=== PATIENT | male | born 1980 | race Caucasian/White ===

== ENCOUNTER 2017-06-27 08:27 | Emergency (ER) | payer SELFPAY ==
[2017-06-27] MEDS ORDERED: Ondansetron INJ* 2 MG/ML VIAL IV ONE (08:52)
[2017-06-27] MEDS ORDERED: Morphine INJ* 4 MG/ML 1 ML CARPUJECT IV ONE (08:55)
[2017-06-27] MEDS: NS 0.9% 1000 ML* 2,000 ML IV ONE ×2 (09:05→09:15)
[2017-06-27 09:11] LABS: ABS Basophils 0 10^3/ul (0-0.2); ABS Eosinophils 0.2 10^3/ul (0-0.6); ABS Lymphocytes 1.3 10^3/ul (1.0-4.8); ABS Monocytes 0.7 10^3/ul (0-0.8); ABS Nucleated RBC 0 10^3/ul; Eosinophil % 1.7 % (0-6); Hematocrit 46 % (42-52); Hemoglobin 15.9 g/dl (14.0-18.0); Mean Corpuscular HGB Conc 35 g/dl (31-36); Mean Corpuscular Hemoglobin 28 pg (27-31); Mean Corpuscular Volume 81 fL (80-94); Mean Platelet Volume 8 um3 (7.4-10.4); Nucleated Red Blood Cells % 0; Platelet Count 269 10^3/ul (150-450); Red Blood Count 5.65 10^6/ul (4.0-5.4); Red Cell Distribution Width 13 % (10.5-15); White Blood Count 13.3 10^3/ul (3.5-10.8)
[2017-06-27 09:37] LABS: EGFR Non-African American 105.4 (>60)
[2017-06-27] MEDS ORDERED: Metoclopramide IV* 5 MG/ML 2 ML VIAL IV SLOW PU ONE (10:36)
[2017-06-27] MEDS ORDERED: Iohexol 300* (CONTRAST) 10 ML SDV IV ONE (10:59)
--- NOTE | 2017-06-27 11:46 | RAD ---
INDICATION: Right lower quadrant pain COMPARISON: CT chest/abdomen/pelvis September 03, 2013 TECHNIQUE: Axial source images were obtained from the hemidiaphragms to the symphysis pubis following administration of oral and intravenous contrast. 145 mL Omnipaque 300 was utilized. Coronal and sagittal reconstructed images were acquired. Lung bases: The lung bases are clear. Liver: The liver is enlarged with findings of hepatic steatosis. There are no masses. There is no ductal dilatation. Gallbladder: There are no calcified gallstones. There is no evidence of wall thickening or pericholecystic fluid. Spleen: The spleen is normal in size. There are no masses. Pancreas: There is no focal pancreatic mass or ductal dilatation. Adrenal glands: There is no evidence of adrenal mass. Kidneys: The kidneys are normal in size and position. There are prompt nephrograms and there is prompt excretion bilaterally. There are no renal parenchymal masses. There is no evidence of nephrolithiasis. Adenopathy: There is no evidence of adenopathy by size criteria. Fluid collections: There are no free or localized fluid collections. Vessels:There are no significant atherosclerotic changes involving the aorta. There is no focal aneurysm. The iliac vessels are normal in caliber. The IVC appears normal. GI tract: .There are no acute CT bowel findings. There is no obstruction. The stomach and small bowel appear normal. The lower GI tract is remarkable for scattered diverticula of the sigmoid and descending colon. There is mild bowel wall thickening which may reflect chronic change. There is no perienteric stranding. The terminal ileum, ileocecal valve, and appendix are normal. Pelvic organs: The prostate and seminal vesicles appear normal Bladder: There are no bladder masses. Abdominal and pelvic soft tissues: The extraperitoneal abdominal and pelvic soft tissues appear normal.. Osseous structures: There are no acute osseous findings. There is mild lumbar spine straightening, unchanged Other: None IMPRESSION: 1. Normal appendix. 2. No evidence of calcified cholelithiasis. 3. Scattered diverticula with presumed chronic change. No CT evidence specific for acute diverticulitis
[2017-06-27] MEDS ORDERED: Haloperidol INJ IV/IM* 5 MG/ML AMP IV SLOW PU ONE (12:10)
[2017-06-27 12:17] LABS: Urine Appearance Clear; Urine Blood 1+ (Negative); Urine Color Straw; Urine Ketones Negative (Negative); Urine Protein Negative (Negative); Urine Specific Gravity 1.038 (1.010-1.030); Urine Urobilinogen Negative (Negative)
[2017-06-27] MEDS ORDERED: Al Hydrox/Mg Hydrox/Simet LIQ* 30 ML UDC PO ONE (12:42)
[2017-06-27] MEDS ORDERED: HYDROcodone/ACETAMIN 5-325 MG* 1 TAB PO ONE (12:42)
[2017-06-27] MEDS ORDERED: Lidocaine 2% VISCOUS* 15 ML UDC PO ONE (12:42)
[2017-06-27] MEDS ORDERED: LORazepam INJ* 2 MG/ML 1 ML VIAL IV PUSH ONE (12:42)
[2017-06-27 14:55] VITALS: BP 155/80
--- NOTE | 2017-06-28 16:14 | ED ---
Virginia Cisneros Gabriel, scribed for Valdo Apple MD on 06/27/17 at 0908 . GI/ HPI - HPI Summary HPI Summary: This patient is a 36 year old M presenting to [facility] accompanied by his with a chief complaint of n/v/d since midnight last night. The patient rates the pain 8/10 in severity. Patient reports fever, rash on his face, swallow face , unable to shut his eyes, myalgia, sore throat, some blood in vomit, and GERARD. Patient denies dysuria, hematuria, and testicular pain. Patient has not had a vomiting episode in an hour and states his diarrhea is green. He has been having ABD pain for a week and does not believe it is a pulled muscle. The patient has sick children at home, drinks 4-5 red bulls a day, and still has his appendix. - History of Current Complaint Chief Complaint: EDNauseaVomitDiarrh Time Seen by Provider: 06/27/17 08:52 Stated Complaint: VOMITING Hx Obtained From: Patient Onset/Duration: Started Hours Ago - 9, Still Present Timing: Constant Severity: Moderate Current Severity: Moderate Pain Intensity: 8 Location of Pain: Suprapubic - Additional Pertinent History Primary Care Physician: [id number] - Allergy/Home Medications Allergies/Adverse Reactions: Allergies Allergy/AdvReac Type Severity Reaction Status Date / Time No Known Allergies Allergy Verified 06/27/17 08:33 PMH/Surg Hx/FS Hx/Imm Hx Endocrine/Hematology History: Denies: Hx Diabetes, Hx Thyroid Disease Cardiovascular History: Reports: Hx Hypertension Denies: Hx Congestive Heart Failure Respiratory History: Denies: Hx Asthma, Hx Chronic Obstructive Pulmonary Disease (COPD) GI History: Denies: Hx Ulcer History: Denies: Hx Renal Disease Musculoskeletal History: Reports: Hx Back Problems - sciatica, DJD Denies: Hx Scoliosis Neurological History: Reports: Other Neuro Impairments/Disorders - BILATERAL LOWER EXTREMITY WEAKNESS,NUMBNESS Denies: Hx Headaches Psychiatric History: Reports: Hx Anxiety, Hx of Violent Episodes Against Others Denies: Hx Eating Disorder Infectious Disease History: No Infectious Disease History: Denies: Hx Clostridium Difficile, Hx Hepatitis, Hx Human Immunodeficiency Virus (HIV), Hx of Known/Suspected MRSA, Hx Shingles, Hx Tuberculosis, Traveled Outside the [place] in Last 30 Days - Family History Known Family History: Positive: Cardiac Disease, Hypertension - Social History Occupation: Employed Full-time Lives: With Family Alcohol Use: Occasionally Alcohol Amount: Weekly mostly on the weekends Substance Use Type: Reports: Cocaine, Marijuana, Heroin Substance Use Comment - Amount & Last Used: states Hx opiod abuse 2008 Smoking Status (MU): Former Smoker Type: Cigarettes Review of Systems Positive: Fever. Negative: Chills Negative: Erythema Positive: Sore Throat Negative: Chest Pain Negative: Shortness Of Breath Positive: Abdominal Pain, Vomiting, Diarrhea, Nausea, Other - small amount of blood in his vomit Genitourinary: Negative - testicular pain Negative: dysuria, hematuria Positive: Myalgia. Negative: Edema Positive: Rash - on face , Other - facial swelling making him unable to shut his eyes Neurological: Negative - dizziness Positive: Headache All Other Systems Reviewed And Are Negative: Yes Physical Exam - Summary Physical Exam Summary: Constitutional: Well-developed, Well-nourished, Alert. (-) Distressed Skin: Warm, Dry, petechiae on his face HENT: Normocephalic; Atraumatic Eyes: Conjunctiva normal Neck: Musculoskeletal ROM normal neck. (-) JVD, (-) Stridor, (-) Tracheal deviation Cardio: Rhythm regular, rate normal, Heart sounds normal; Intact distal pulses; The pedal pulses are 2+ and symmetric. Radial pulses are 2+ and symmetric. (-) Murmur Pulmonary/Chest wall: Effort normal. (-) Respiratory distress, (-) Wheezes, (-) Rales Abd: Soft, (+) Tenderness, (-) Distension, (-) Guarding, (-) Rebound, RLQ tenderness Musculoskeletal: (-) Edema Lymph: (-) Cervical adenopathy Neuro: Alert, Oriented x3 Psych: Mood and affect Normal Triage Information Reviewed: Yes Vital Signs On Initial Exam: Initial Vitals Temp Pulse Resp BP Pulse Ox 99.4 F 85 16 175/94 98 06/27/17 08:30 06/27/17 08:30 06/27/17 08:30 06/27/17 08:30 06/27/17 08:30 Diagnostics - Vital Signs Vital Signs Temp Pulse Resp BP Pulse Ox 06/27/17 08:30 99.4 F 85 16 175/94 98 - Laboratory Lab Results: Lab Results 06/27/17 06/27/17 06/27/17 Range/Units 09:02 09:02 09:02 WBC 13.3 H (3.5-10.8) 10^3/ul RBC 5.65 H (4.0-5.4) 10^6/ul Hgb 15.9 (14.0-18.0) g/dl Hct 46 (42-52) % MCV 81 (80-94) fL MCH 28 (27-31) pg MCHC 35 (31-36) g/dl RDW 13 (10.5-15) % Plt Count 269 (150-450) 10^3/ul MPV 8 (7.4-10.4) um3 Neut % (Auto) 82.7 (38-83) % Lymph % (Auto) 10.0 L (25-47) % [place] % (Auto) 5.3 (1-9) % Eos % (Auto) 1.7 (0-6) % Baso % (Auto) 0.3 (0-2) % Absolute Neuts (auto) 11.0 H (1.5-7.7) 10^3/ul Absolute Lymphs (auto) 1.3 (1.0-4.8) 10^3/ul Absolute Monos (auto) 0.7 (0-0.8) 10^3/ul Absolute Eos (auto) 0.2 (0-0.6) 10^3/ul Absolute Basos (auto) 0 (0-0.2) 10^3/ul Absolute Nucleated RBC 0 10^3/ul Nucleated RBC % 0 Sodium 136 (133-145) mmol/L Potassium 4.2 (3.5-5.0) mmol/L Chloride 102 (101-111) mmol/L Carbon Dioxide 25 (22-32) mmol/L Anion Gap 9 (2-11) mmol/L BUN 10 (6-24) mg/dL Creatinine 0.83 (0.67-1.17) mg/dL Est GFR ( Amer) 135.6 (>60) Est GFR (Non-Af Amer) 105.4 (>60) BUN/Creatinine Ratio 12.0 (8-20) Glucose 94 (70-100) mg/dL Lactic Acid 1.7 (0.5-2.0) mmol/L Calcium 9.8 (8.6-10.3) mg/dL Total Bilirubin 0.70 (0.2-1.0) mg/dL AST 40 H (13-39) U/L ALT 63 H (7-52) U/L Alkaline Phosphatase 48 (34-104) U/L C-Reactive Protein 2.11 (< 5.00) mg/L Total Protein 7.7 (6.4-8.9) g/dL Albumin 4.5 (3.2-5.2) g/dL Globulin 3.2 (2-4) g/dL Albumin/Globulin Ratio 1.4 (1-3) Lipase 19 (11.0-82.0) U/L Urine Color Urine Appearance Urine pH (5-9) Ur Specific [place] (1.010-1.030) Urine Protein (Negative) Urine Ketones (Negative) Urine Blood (Negative) Urine Nitrate (Negative) Urine Bilirubin (Negative) Urine Urobilinogen (Negative) Ur Leukocyte Esterase (Negative) Urine WBC (Auto) (Absent) Urine RBC (Auto) (Absent) Urine Bacteria (Absent) Urine Glucose (Negative) Influenza A (Rapid) (Negative) Influenza B (Rapid) (Negative) 06/27/17 06/27/17 Range/Units 09:27 11:40 WBC (3.5-10.8) 10^3/ul RBC (4.0-5.4) 10^6/ul Hgb (14.0-18.0) g/dl Hct (42-52) % MCV (80-94) fL MCH (27-31) pg MCHC (31-36) g/dl RDW (10.5-15) % Plt Count (150-450) 10^3/ul MPV (7.4-10.4) um3 Neut % (Auto) (38-83) % Lymph % (Auto) (25-47) % [place] % (Auto) (1-9) % Eos % (Auto) (0-6) % Baso % (Auto) (0-2) % Absolute Neuts (auto) (1.5-7.7) 10^3/ul Absolute Lymphs (auto) (1.0-4.8) 10^3/ul Absolute Monos (auto) (0-0.8) 10^3/ul Absolute Eos (auto) (0-0.6) 10^3/ul Absolute Basos (auto) (0-0.2) 10^3/ul Absolute Nucleated RBC 10^3/ul Nucleated RBC % Sodium (133-145) mmol/L Potassium (3.5-5.0) mmol/L Chloride (101-111) mmol/L Carbon Dioxide (22-32) mmol/L Anion Gap (2-11) mmol/L BUN (6-24) mg/dL Creatinine (0.67-1.17) mg/dL Est GFR ( Amer) (>60) Est GFR (Non-Af Amer) (>60) BUN/Creatinine Ratio (8-20) Glucose (70-100) mg/dL Lactic Acid (0.5-2.0) mmol/L Calcium (8.6-10.3) mg/dL Total Bilirubin (0.2-1.0) mg/dL AST (13-39) U/L ALT (7-52) U/L Alkaline Phosphatase (34-104) U/L C-Reactive Protein (< 5.00) mg/L Total Protein (6.4-8.9) g/dL Albumin (3.2-5.2) g/dL Globulin (2-4) g/dL Albumin/Globulin Ratio (1-3) Lipase (11.0-82.0) U/L Urine Color Straw Urine Appearance Clear Urine pH 7.0 (5-9) Ur Specific [place] 1.038 H (1.010-1.030) Urine Protein Negative (Negative) Urine Ketones Negative (Negative) Urine Blood 1+ H (Negative) Urine Nitrate Negative (Negative) Urine Bilirubin Negative (Negative) Urine Urobilinogen Negative (Negative) Ur Leukocyte Esterase Negative (Negative) Urine WBC (Auto) Absent (Absent) Urine RBC (Auto) Trace(0-2/hpf) (Absent) Urine Bacteria Absent (Absent) Urine Glucose Negative (Negative) Influenza A (Rapid) Negative (Negative) Influenza B (Rapid) Negative (Negative) Result Diagrams: 06/27/17 09:02 06/27/17 09:02 Lab Statement: Any lab studies that have been ordered have been reviewed, and results considered in the medical decision making process. - CT CT ABD/Pelvis CT Interpretation Completed By: Radiologist - 1. Normal appendix. 2. No evidence of calcified cholelithiasis. 3. Scattered diverticula with presumed chronic change. No CT evidence specific for acute diverticulitis ED physician has reviewed this radiology report. Re-Evaluation - Re-Evaluation First Eval Re-Evaluation Time: 12:00 Change: Unchanged Comment: The patient is still nauseous still has epigastric pain. Second Eval Re-Evaluation Time: 13:28 Change: Improved Comment: Patient has non tender abd and is tolerating PO fluids. Pain is 2/10. GIGU Course/Dx - Course Assessment/Plan: This patient is a 36 year old M presenting to [facility] accompanied by his with a chief complaint of n/v/d since midnight last night. The patient rates the pain 8/10 in severity. Patient reports fever, rash on his face, swollen face, unable to shut his eyes, myalgia, sore throat, some blood in vomit, and GERARD. Patient denies dysuria, hematuria, and testicular pain. Patient has not had a vomiting episode in an hour and states his diarrhea is green. He has been having ABD pain for a week and does not believe it is a pulled muscle. The patient has sick children at home, drinks 4-5 red bulls a day , and still has his appendix. CT ABD/Pelvis reveals, per radiologist, 1. Normal appendix. 2. No evidence of calcified cholelithiasis. 3. Scattered diverticula with presumed chronic change. No CT evidence specific for acute. diverticulitis. Test results with no significant abnormalities, UA and bloodwork obtained. In the ED course the patient was given Maalox, Ativan, Reglan, morphine, and IV fluids. Patient will be discharged with prescription for Reglan, Zofran, and Protonix and follow up from [facility] [place] referral. The patient is agreeable with this plan. - Diagnoses Provider Diagnoses: Gastroenteritis Discharge - Discharge Plan Condition: Stable Disposition: HOME Prescriptions: Metoclopramide TAB* [Reglan TAB*] 10 mg PO Q8H PRN #10 tab PRN Reason: Nausea/Vomiting Ondansetron ODT TAB* [Zofran 4 MG Odt TAB*] 4 mg PO Q8H PRN #10 tab.odt PRN Reason: Nausea/Vomiting Pantoprazole TAB (NF) [Protonix TAB (NF)] 40 mg PO DAILY #30 tab Patient Education Materials: Metoclopramide (By mouth), Ondansetron (By mouth) , Pantoprazole (By mouth), Gastroenteritis (ED) Referrals: No Primary Care Phys,NOPCP [Primary Care Provider] - [facility]YSICIAN REFERRAL [Outside] Additional Instructions: Take Maalox as needed for pain. RETURN TO EMERGENCY DEPARTMENT FOR ANY NEW OR WORSENING SYMPTOMS The documentation as recorded by the Virignia hyatt Gabriel accurately reflects the service I personally performed and the decisions made by me, Valdo Apple MD.
== END 2017-06-27 14:50 | disposition home or self-care (01) ==
LOC: ED 08:27
DX: K52.9 Noninfective gastroenteritis and colitis, unspecified (principal); R50.9 Fever, unspecified; J02.9 Acute pharyngitis, unspecified; R10.9 Unspecified abdominal pain; R11.2 Nausea with vomiting, unspecified; R19.7 Diarrhea, unspecified; R21 Rash and other nonspecific skin eruption; R51 Headache; Z87.891 Personal history of nicotine dependence
CPT/HCPCS: 36415; 74177; 80053; 81003; 81015; 83605; 83690; 85025; 86140; 87502; 96374; 96375; 99284; A9270-GY; J1630; J2060; J2270; J2405; J2765; Q9967

== ENCOUNTER 2018-02-21 18:52 | Emergency (ER) | payer SELFPAY ==
[2018-02-21] MEDS ORDERED: Lidocaine 2% EPI 1:200000 MPF*10-20 ML VIAL ONE (20:12)
--- NOTE | 2018-02-21 20:21 | ED ---
Laceration/Wound HPI - HPI Summary HPI Summary: Brooke suffered a lacedration to his left thumb on a knife while working on his car at 1700 today. - History of Current Complaint Stated Complaint: LEFT THUMB INJURY Time Seen by Provider: 02/21/18 20:20 Pain Intensity: 10 - Additional Pertinent History Primary Care Physician: [id number] - Allergy/Home Medications Allergies/Adverse Reactions: Allergies Allergy/AdvReac Type Severity Reaction Status Date / Time No Known Allergies Allergy Verified 02/21/18 20:38 PMH/Surg Hx/FS Hx/Imm Hx Endocrine/Hematology History: Denies: Hx Diabetes, Hx Thyroid Disease Cardiovascular History: Reports: Hx Hypertension Denies: Hx Congestive Heart Failure Respiratory History: Denies: Hx Asthma, Hx Chronic Obstructive Pulmonary Disease (COPD) GI History: Denies: Hx Ulcer History: Denies: Hx Renal Disease Musculoskeletal History: Reports: Hx Back Problems - sciatica, DJD Denies: Hx Scoliosis Neurological History: Reports: Other Neuro Impairments/Disorders - BILATERAL LOWER EXTREMITY WEAKNESS,NUMBNESS Denies: Hx Headaches Psychiatric History: Reports: Hx Anxiety, Hx of Violent Episodes Against Others Denies: Hx Eating Disorder - Surgical History Surgery Procedure, Year, and Place: thumb Infectious Disease History: No Infectious Disease History: Denies: Hx Clostridium Difficile, Hx Hepatitis, Hx Human Immunodeficiency Virus (HIV), Hx of Known/Suspected MRSA, Hx Shingles, Hx Tuberculosis, Traveled Outside the in Last 30 Days - Family History Known Family History: Positive: Cardiac Disease, Hypertension - Social History Alcohol Use: Occasionally Alcohol Amount: Weekly mostly on the weekends Substance Use Type: Reports: Cocaine, Marijuana, Heroin Substance Use Comment - Amount & Last Used: states Hx opiod abuse 2009 Smoking Status (MU): Former Smoker Type: Cigarettes Review of Systems Constitutional: Negative Negative: Rash All Other Systems Reviewed And Are Negative: No Physical Exam Vital Signs On Initial Exam: Initial Vitals Temp Pulse Resp BP Pulse Ox 35.9 C 110 20 164/104 97 02/21/18 18:55 02/21/18 18:55 02/21/18 18:55 02/21/18 18:55 02/21/18 18:55 Skin: Positive: Warm, Dry Head/Face: Positive: Normal Head/Face Inspection Eyes: Positive: Normal ENT: Positive: Normal ENT inspection Respiratory/Lung Sounds: Positive: Breath Sounds Present - There is a 3 cm linear laceration to the distal left thumb Procedures - Procedure Summary Procedure Summary: The patient was given a digital block with 2% lidocaine with epinephrine by me. Subsequent repair of the laceration was performed by the physician children's nursery assistant. - Laceration/Wound Repair 1 Suture Type: Nylon Diagnostics - Vital Signs Vital Signs Temp Pulse Resp BP Pulse Ox 02/21/18 18:55 35.9 C 110 20 164/104 97 - Laboratory Lab Statement: Any lab studies that have been ordered have been reviewed, and results considered in the medical decision making process. Laceration Repair Course/Dx - Clinical Impression Provider Diagnoses: Finger laceration Discharge - Sign-Out/Discharge Documenting (check all that apply): Patient Departure - Discharge Plan Condition: Stable Disposition: HOME Prescriptions: Cephalexin CAP* [Keflex CAP*] 500 mg PO BID #14 cap Hydrocodone/Acetaminophen [[place] 5-325 mg] 1 tab PO BID PRN #6 tab MDD 2 PRN Reason: Pain Referrals: No Primary Care Phys,NOPCP [Primary Care Provider] - Additional Instructions: 1) Please keep the area bandaged, clean, dry, and intact for the next 24- 48hours. 2) If you develop a fever, colored or thick discharge, increased pain or swelling - please call your PCP or go to the ED. 3) Please return in 10 days to have your SIX sutures removed. - Billing Disposition and Condition Condition: STABLE Disposition: Home - Attestation Statements Document Initiated by Scribe: No
[2018-02-21] MEDS ORDERED: Ondansetron ODT TAB* 4 MG PO ONE (21:24)
--- NOTE | 2018-02-21 21:32 | ED ---
Progress - Progress Note Progress Note: Pt evaluated by Dr. Sloan. Procedure and discharge performed by myself. Course/Dx - Course Course Of Treatment: Pt tolerated procedure well, but did become nauseous during the suturing process - Zofran 4mg was given in the clinical course. He works daily with his hands and is very concerned about pain in the coming days and is asking for something stronger than ibuprofen to have if his pain becomes severe. iSTOP Reference #: [id number] and clear. Will rx for a short supply of [place] and cover him with Keflex for infection as the wound was quite dirty upon presentation. Pt agreeable with plan. - Diagnoses Provider Diagnoses: Finger laceration Discharge - Sign-Out/Discharge Documenting (check all that apply): Patient Departure - Discharge Plan Condition: Stable Disposition: HOME Prescriptions: Cephalexin CAP* [Keflex CAP*] 500 mg PO BID #14 cap Hydrocodone/Acetaminophen [[place] 5-325 mg] 1 tab PO BID PRN #6 tab MDD 2 PRN Reason: Pain Referrals: No Primary Care Phys,NOPCP [Primary Care Provider] - Additional Instructions: 1) Please keep the area bandaged, clean, dry, and intact for the next 24- 48hours. 2) If you develop a fever, colored or thick discharge, increased pain or swelling - please call your PCP or go to the ED. 3) Please return in 10 days to have your SIX sutures removed. - Billing Disposition and Condition Condition: STABLE Disposition: Home Laceration Repair - Laceration Repair 1 Procedure Summary: Thumb was cleansed with NS and alcohol pad. A digital block was performed with 2 % lidocaine and good anesthetization was achieved. SIX 5-0 nylon interrupted sutures placed with good approximation of wound edges. The wound was bandaged with tubegauze. Laceration Size After Repair: Length (cm) - 2.0, Width (mm) - 4 Modified For Repair: No Type Injection: Local Anesthesia Used: 2.0% Lido Cleansing Completed Via Routine Prep: Yes Closure Material: Sutures - SIX 5-0 Closure Method: Single Layer Suture Of: Skin Suture Type: Nylon
[2018-02-21 21:39] VITALS: BP 141/90
== END 2018-02-21 21:35 | disposition home or self-care (01) ==
LOC: ED 18:52
DX: S61.012A Laceration without foreign body of left thumb without damage to nail, initial encounter (principal); W26.0XXA Contact with knife, initial encounter; Y92.9 Unspecified place or not applicable; Z87.891 Personal history of nicotine dependence
CPT/HCPCS: 12002; 99282; A9270-GY

== ENCOUNTER 2018-09-07 09:23 | Emergency (ER) | payer SELFPAY ==
[2018-09-07] MEDS ORDERED: Morphine 10 MG/ML VIAL (1 ml) IV ONE (09:36)
[2018-09-07] MEDS ORDERED: Metoclopramide IV* 5 MG/ML 2 ML VIAL IV ONE (09:36)
[2018-09-07] MEDS ORDERED: NS 0.9% 1000 ML** 2,000 ML IV ONE (09:36)
--- NOTE | 2018-09-07 09:40 | ED ---
Abdominal Pain/Male - HPI Summary HPI Summary: This patient is a 37 year old M brought in by ambulance to ED with a chief complaint of N/V and diffuse abdominal pain since earlier this morning. Prior treatment includes 4mg IVP Zofran given by EMS. The patient rates the pain 10/ 10 in severity. Symptoms aggravated by nothing. Symptoms alleviated by nothing. Patient reports anxiety, chills, cramping in his fingers and toes, and hematemesis. He reports that he still has his appendix. He smokes marijuana occasionally. - History of Current Complaint Stated Complaint: GENERAL ILLNESS PER EMS Time Seen by Provider: 09/07/18 09:28 Hx Obtained From: Patient Onset/Duration: Sudden Onset, Lasting Hours, Still Present Timing: Constant, Lasting Hours Pain Scale Used: 0-10 Numeric Location: Diffuse Aggravating Factor(s): Nothing Alleviating Factor(s): Nothing Associated Signs And Symptoms: Positive: Nausea, Vomiting, Other - anxiety, chills, cramping in his fingers and toes, and hematemesis - Allergies/Home Medications Allergies/Adverse Reactions: Allergies Allergy/AdvReac Type Severity Reaction Status Date / Time No Known Allergies Allergy Verified 02/21/18 20:38 PMH/Surg Hx/FS Hx/Imm Hx Endocrine/Hematology History: Denies: Hx Diabetes, Hx Thyroid Disease Cardiovascular History: Reports: Hx Hypertension Denies: Hx Congestive Heart Failure Respiratory History: Denies: Hx Asthma, Hx Chronic Obstructive Pulmonary Disease (COPD) GI History: Denies: Hx Ulcer History: Denies: Hx Renal Disease Musculoskeletal History: Reports: Hx Back Problems - sciatica, DJD Denies: Hx Scoliosis Neurological History: Reports: Other Neuro Impairments/Disorders - BILATERAL LOWER EXTREMITY WEAKNESS,NUMBNESS Denies: Hx Headaches Psychiatric History: Reports: Hx Anxiety, Hx of Violent Episodes Against Others Denies: Hx Eating Disorder - Surgical History Surgery Procedure, Year, and Place: thumb - Immunization History Date of Tetanus Vaccine: unknown Infectious Disease History: Denies: Hx Clostridium Difficile, Hx Hepatitis, Hx Human Immunodeficiency Virus (HIV), Hx of Known/Suspected MRSA, Hx Shingles, Hx Tuberculosis - Family History Known Family History: Positive: Cardiac Disease, Hypertension - Social History Alcohol Use: Occasionally Alcohol Amount: Weekly mostly on the weekends Substance Use Type: Reports: Cocaine, Marijuana, Heroin Substance Use Comment - Amount & Last Used: states Hx opiod abuse 2009 Smoking Status (MU): Former Smoker Type: Cigarettes Review of Systems Positive: Chills Positive: Abdominal Pain - diffuse, Vomiting, Nausea, Other - hematemesis Positive: Other - cramping in his fingers and toes Positive: Anxious All Other Systems Reviewed And Are Negative: Yes Physical Exam - Summary Physical Exam Summary: Appearance: Well appearing, anxious Skin: warm, dry, reflects adequate perfusion Head/face: normal Eyes: EOMI, DEMETRIO ENT: normal Neck: supple, non-tender Respiratory: CTA, breath sounds present Cardiovascular: RRR, pulses symmetrical Abdomen: diffuse abdominal tenderness, soft Musculoskeletal: normal, strength/ROM intact Neuro: normal, sensory motor intact, A&Ox3 Triage Information Reviewed: Yes Vital Signs Reviewed: Yes Diagnostics - Laboratory Result Diagrams: 09/07/18 09:56 09/07/18 09:56 Lab Statement: Any lab studies that have been ordered have been reviewed, and results considered in the medical decision making process. - CT CT abd/pel CT Interpretation Completed By: Radiologist Summary of CT Findings: Mild colonic diverticulosis without findings of acute diverticulitis. Normal appendix documented. Negative for obstructive uropathy. No acute abdominal pelvic pathologic process evident. Dr. Herndon has reviewed this radiology report. - EKG 0946 Cardiac Rate: NL - 83 BPM EKG Rhythm: Sinus Rhythm Summary of EKG Findings: no acute changes Re-Evaluation - Re-Evaluation First Eval Re-Evaluation Time: 12:50 Comment: Discussed results and plan for discharge with the patient. Patient understands and agrees with this plan. Abdominal Pain Male Course/Dx - Course Assessment/Plan: This patient is a 37 year old M presenting to ED with a chief complaint of N/V and diffuse abdominal pain since earlier this morning. Blood work/UA obtained. In the ED course, the patient was given fluids, Reglan, Haldol , Benadryl, Ativan, Zofran, and Morphine. EKG reveals NSR at 83 BPM and no acute changes. CT abd/pel mild colonic diverticulosis without findings of acute diverticulitis. Normal appendix documented. Negative for obstructive uropathy. No acute abdominal pelvic pathologic process evident. This patient will be discharged with dx of gastroenteritis. Patient understands and agrees with this plan. - Diagnoses Differential Diagnosis/HQI/PQRI: Other - gastroenteritis Provider Diagnoses: Gastroenteritis Discharge - Sign-Out/Discharge Documenting (check all that apply): Patient Departure - discharge Patient Received Moderate/Deep Sedation with Procedure: No - Discharge Plan Condition: Stable Disposition: HOME Patient Education Materials: Gastroenteritis (ED) Referrals: [facility] [Outside] - 3 Days Additional Instructions: RETURN TO THE EMERGENCY DEPARTMENT FOR CHANGING OR WORSENING SYMPTOMS. - Attestation Statements Document Initiated by Scribe: Yes Documenting Scribe: Bandar Coffey Provider For Whom Scribe is Documenting (Include Credential): Mathew Herndon MD Scribe Attestation: Bandar Cisneros, scribed for Mathew Herndon MD on 09/07/18 at 1252.
[2018-09-07 10:04] LABS: ABS Basophils 0 10^3/ul (0-0.2); ABS Eosinophils 0.1 10^3/ul (0-0.6); ABS Lymphocytes 0.6 10^3/ul (1.0-4.8); ABS Monocytes 0.5 10^3/ul (0-0.8); ABS Neutrophils 15.7 10^3/ul (1.5-7.7); ABS Nucleated RBC 0 10^3/ul; Eosinophil % 0.4 %; Hematocrit 46 % (36-46); Hemoglobin 15.8 g/dL (14.0-18.0); Lymphocyte % 3.7 %; Mean Corpuscular HGB Conc 34 g/dL (31-36); Mean Corpuscular Hemoglobin 28 pg (27-31); Mean Corpuscular Volume 82 fL (80-94); Mean Platelet Volume 8.5 fL (7.4-10.4); Nucleated Red Blood Cells % 0; Platelet Count 295 10^3/uL (150-450); Red Blood Count 5.67 10^6 /uL (4.18-5.48); Red Cell Distribution Width 14 % (10.5-15); White Blood Count 16.9 10^3/uL (3.5-10.8)
[2018-09-07 10:11] LABS: INR 0.98 (0.77-1.02)
[2018-09-07] MEDS ORDERED: Ondansetron INJ* 2 MG/ML VIAL IV ONE (10:19)
[2018-09-07 10:20] LABS: Albumin 4.7 g/dL (3.2-5.2); Albumin/Globulin Ratio 1.6 (1-3); BUN/Creatinine Ratio 16.7 (8-20); Calcium 9.8 mg/dL (8.6-10.3); EGFR Non-African American 82.6 (>60); Potassium 4.1 mmol/L (3.5-5.0); Total Bilirubin 0.9 mg/dL (0.2-1.0); Total Protein 7.7 g/dL (6.4-8.9)
[2018-09-07] MEDS ORDERED: Iohexol 300* (CONTRAST) 10 ML SDV IV ONE (10:31)
[2018-09-07] MEDS ORDERED: LORazepam INJ* 2 MG/ML 1 ML VIAL ONE (10:39)
[2018-09-07] MEDS ORDERED: Haloperidol INJ IV/IM* 5 MG/ML AMP IM ONE (10:48)
[2018-09-07] MEDS ORDERED: LORazepam INJ* 2 MG/ML 1 ML VIAL IV PUSH ONE (10:48)
[2018-09-07] MEDS ORDERED: diPHENhydraMINE IV* 50 MG/ML 1 ml VIAL (BENADRYL) IV ONE (10:49)
[2018-09-07 12:45] LABS: Urine Appearance Clear; Urine Bilirubin Negative (Negative); Urine Blood Negative (Negative); Urine Color Yellow; Urine Glucose Negative (Negative); Urine Ketones 1+ (Negative); Urine Nitrite Negative (Negative); Urine Protein Negative (Negative); Urine Specific Gravity 1.056 (1.010-1.030); Urine Urobilinogen Negative (Negative)
[2018-09-07 13:31] VITALS: BP 133/84
== END 2018-09-07 13:29 | disposition home or self-care (01) ==
LOC: ED 09:23
DX: K52.9 Noninfective gastroenteritis and colitis, unspecified (principal); K57.90 Diverticulosis of intestine, part unspecified, without perforation or abscess without bleeding; I10 Essential (primary) hypertension; E11.9 Type 2 diabetes mellitus without complications; E07.9 Disorder of thyroid, unspecified; M54.30 Sciatica, unspecified side; R20.0 Anesthesia of skin; F11.10 Opioid abuse, uncomplicated; Z87.891 Personal history of nicotine dependence
CPT/HCPCS: 36415; 74177; 80053; 81003; 83690; 84484; 85025; 85610; 85730; 93005; 96361; 96374; 96375; 99284; J1200; J1630; J2060; J2270; J2405; J2765; Q9967

== ENCOUNTER 2019-05-13 09:16 | Emergency (ER) | payer OTHER ==
[2019-05-13] MEDS ORDERED: Cyclobenzaprine TAB* 10 MG PO ONE (09:33)
--- NOTE | 2019-05-13 09:42 | ED ---
Back Pain - HPI Summary HPI Summary: Patient is a 38-year-old male who presents with low back pain via EMS. 3 days ago he was shoveling snow when he twisted and felt a "pop." Has been in pain since. Used heating packs and [employer], with no relief. Any movement exacerbates the pain. Patient states he can not walk due to pain. Denies numbness, tingling, pain in lower extremities. Denies bowel or bladder incontinence or saddle paresthesias. Has a PMH significant for chronic low back pain. - History of Current Complaint Chief Complaint: EDBackInjuryPain Stated Complaint: LOWER BACK PAIN PER EMS Time Seen by Provider: 05/13/19 09:24 Hx Obtained From: Patient Onset/Duration: Sudden Onset, Lasting Days Onset/Duration: Started Days Ago Timing: Constant Severity Initially: Severe Severity Currently: Severe Pain Intensity: 10 Character: Aching, Spasmodic Aggravating Symptom(s): Movement, Lifting, Bending, Walking Alleviating Symptom(s): Nothing Associated Signs And Symptoms: Positive: Negative. Negative: Fever, Weakness, Numbness, Tingling, Flank Pain, Bladder Incontinence, Bowel Incontinence - Risk Factors AAA Risk Factors: Negative TAD Risk Factors: Negative Cauda Equina Risk Factors: Negative Epidural Abscess Risk Factors: Negative - Allergies/Home Medications Allergies/Adverse Reactions: Allergies Allergy/AdvReac Type Severity Reaction Status Date / Time No Known Allergies Allergy Verified 02/21/18 20:38 PMH/Surg Hx/FS Hx/Imm Hx Previously Healthy: Yes Endocrine/Hematology History: Denies: Hx Diabetes, Hx Thyroid Disease Cardiovascular History: Reports: Hx Hypertension Denies: Hx Congestive Heart Failure Respiratory History: Denies: Hx Asthma, Hx Chronic Obstructive Pulmonary Disease (COPD) GI History: Denies: Hx Ulcer History: Denies: Hx Renal Disease Musculoskeletal History: Reports: Hx Back Problems - sciatica, DJD Denies: Hx Scoliosis Neurological History: Reports: Other Neuro Impairments/Disorders - BILATERAL LOWER EXTREMITY WEAKNESS,NUMBNESS Denies: Hx Headaches Psychiatric History: Reports: Hx Anxiety, Hx of Violent Episodes Against Others Denies: Hx Eating Disorder - Surgical History Surgery Procedure, Year, and Place: thumb - Immunization History Date of Tetanus Vaccine: unknown Hx Pertussis Vaccination: No Immunizations Up to Date: Yes Infectious Disease History: No Infectious Disease History: Denies: Hx Clostridium Difficile, Hx Hepatitis, Hx Human Immunodeficiency Virus (HIV), Hx of Known/Suspected MRSA, Hx Shingles, Hx Tuberculosis, Traveled Outside the [place] in Last 30 Days - Family History Known Family History: Positive: Cardiac Disease, Hypertension - Social History Occupation: Employed Full-time Lives: With Family Alcohol Use: Occasionally Alcohol Amount: Weekly mostly on the weekends Hx Substance Use: Yes Substance Use Type: Reports: Cocaine, Marijuana, Heroin Substance Use Comment - Amount & Last Used: states Hx opiod abuse 2009 Hx Tobacco Use: No Smoking Status (MU): Former Smoker Type: Cigarettes Review of Systems Constitutional: Negative Negative: Fever, Chills, Fatigue Cardiovascular: Negative Negative: Chest Pain Respiratory: Negative Negative: Shortness Of Breath, Cough Gastrointestinal: Negative Negative: Abdominal Pain, Vomiting, Diarrhea, Nausea Genitourinary: Negative Positive: no symptoms reported. Negative: incontinence Positive: Arthralgia - low back pain, Myalgia, Decreased ROM Skin: Negative Negative: Rash, Bruising Neurological: Negative Negative: Weakness, Paresthesia, Numbness Psychological: Normal All Other Systems Reviewed And Are Negative: Yes Physical Exam Triage Information Reviewed: Yes Vital Signs On Initial Exam: Initial Vitals Temp Pulse Resp BP Pulse Ox 99.2 F 79 16 163/109 98 05/13/19 09:27 05/13/19 09:27 05/13/19 09:27 05/13/19 09:27 05/13/19 09:27 Vital Signs Reviewed: Yes Appearance: Positive: Well-Appearing, Well-Nourished, Pain Distress Skin: Positive: Warm, Skin Color Reflects Adequate Perfusion, Dry Head/Face: Positive: Normal Head/Face Inspection Eyes: Positive: Normal, EOMI, DEMETRIO, Conjunctiva Clear ENT: Positive: Normal ENT inspection, Hearing grossly normal Neck: Positive: Supple, Nontender Respiratory/Lung Sounds: Positive: Clear to Auscultation, Breath Sounds Present. Negative: Rales, Rhonchi, Wheezes Cardiovascular: Positive: Normal, RRR, S1, S2. Negative: Murmur, Rub, Tachycardia Abdomen Description: Positive: Nontender, No Organomegaly, Soft Bowel Sounds: Positive: Present Musculoskeletal: Positive: Strength/ROM Intact, Pain @ - Pain with palpation of paraspinal muscles L>R. No spinous process tenderness., Other - No bony deformities. Muscle tension L paraspinal muscles. Neurological: Positive: Normal, Sensory/Motor Intact, Unable to Assess Gait Psychiatric: Positive: Normal Procedures - Sedation Patient Received Moderate/Deep Sedation with Procedure: No Diagnostics - Vital Signs Vital Signs Temp Pulse Resp BP Pulse Ox 05/13/19 09:27 99.2 F 79 16 163/109 98 - Laboratory Lab Statement: Any lab studies that have been ordered have been reviewed, and results considered in the medical decision making process. Back Pain Course/Dx - Course Course Of Treatment: 38-year-old male presents via EMS for low back pain after twisting injury. Denies numbness, tingling, radiating pain, saddle parasthesias , or bowel/bladder incontinence. Muscle tightness/tenderness of left paraspinal muscles. No spinous process tenderness or deformities noted. Patient given prednisone, flexeril, and toradol. Pt will f/u as soon as possible. - Diagnoses Differential Diagnosis/HQI/PQRI: Positive: Herniated Disc, Strain, Sprain Provider Diagnoses: Low back strain Discharge ED - Sign-Out/Discharge Documenting (check all that apply): Patient Departure - Discharge Plan Condition: Stable Disposition: HOME Prescriptions: Cyclobenzaprine TAB* [Flexeril TAB*] 10 mg PO BID PRN #18 tab PRN Reason: Spasms Ketorolac TAB * [Toradol TAB *] 10 mg PO Q6H #16 tab predniSONE TAB* [Deltasone TAB*] 50 mg PO DAILY #5 tab MDD 1 Patient Education Materials: Back Pain (ED), Lower Back Exercises (ED) Referrals: [facility] [Outside] No Primary Care Phys,NOPCP [Primary Care Provider] - Additional Instructions: Continue to take Tylenol 650mg three times daily. You are also prescribed Toradol 10mg four times daily. DO NOT TAKE ANY OTHER NSAIDS (IBUPROFEN, ALEVE, NAPROXEN, ETC.) WHILE TAKING THIS MEDICATION. Prednisone once daily x 5 days - start tomorrow morning Use heating pad Use icy/hot Do not - Billing Disposition and Condition Condition: STABLE Disposition: Home
[2019-05-13] MEDS ORDERED: Ketorolac *IM* INJ* 60 MG/2 ML VIAL IM ONE (10:09)
[2019-05-13 10:52] VITALS: BP 144/81
== END 2019-05-13 10:45 | disposition home or self-care (01) ==
LOC: ED 09:16
DX: S39.012A Strain of muscle, fascia and tendon of lower back, initial encounter (principal); X50.1XXA Overexertion from prolonged static or awkward postures, initial encounter; Y93.H1 Activity, digging, shoveling and raking; Y92.9 Unspecified place or not applicable; I10 Essential (primary) hypertension; Z87.891 Personal history of nicotine dependence
CPT/HCPCS: 96372; 99282; A9270-GY; J1885; J7512